=== PATIENT | female | born 1940 | race Caucasian/White ===

== ENCOUNTER 2016-10-12 13:00 | Outpatient (CLI) | payer OTHER ==
--- NOTE | 2016-10-12 14:40 | DIAGNOSTIC IMAGING REPORT ---
PROCEDURE: DEXA BONE DENSITY STUDY CLINICAL INDICATION: SCREENING FOR OSTEOPOROSIS COMPARISON: None. FINDINGS: LUMBAR SPINE: Bone mineral density 1.179 g/cm2, T score 1.2 normal LEFT HIP: Bone mineral density 0.962 g/cm2, T score 0.2 normal LEFT FEMORAL NECK: Bone mineral density 0.608 g/cm2, T score -2.2 osteopenia FRACTURE RISK CALCULATION ( when applicable): 10-year fracture risk of a major osteoporotic fracture 48% and of a hip fracture 32% (T score greater or equal to -1.0 to: NORMAL) (T score from -1.1 to -2.4: OSTEOPENIA) (T score ess than or equal to -2.5: OSTEOPOROSIS) IMPRESSION: 1. Osteopenia femoral neck with a 10-year fracture risk of 48% and a hip fracture risk of 32%
--- NOTE | 2016-10-12 15:43 | DIAGNOSTIC IMAGING REPORT ---
PROCEDURE: MG BILATERAL DIAGNOSTIC W/CAD INDICATION: Palpable area and pain and lateral right breast. New baseline. Family history breast carcinoma (maternal aunts). TECHNIQUE: CC and MLO digital views of each breast with true-lateral digital view of the right breast. In addition, reverse MLO and exaggerated CC views were obtained of the lateral right breast (region of clinical concern). Finally, high-resolution right breast ultrasound was performed (18 mHz). COMPARISON: FINDINGS: MAMMOGRAM: Computer-aided detection applied. Mildly dense parenchymal pattern. There is a 6 mm benign intramammary lymph node in the upper outer left breast. There is no evidence of abnormality in the upper outer right breast. BREAST ULTRASOUND: Normal parenchyma. No evidence of mass or cyst. IMPRESSION: 1. Negative mammogram and negative right breast ultrasound. 2. Resume routine screening schedule (September 2017). 3. Findings discussed with the patient. RESULT CODE: 1- Negative. A. A negative report should not delay biopsy if a dominant or clinically suspicious mass is present. 10-15% of cancers are not identified by x-ray. B. A negative report may reinforce clinical impression. C. Adenosis and dense breasts may obscure an underlying neoplasm. D. False positive reports average 6-10%. E.. A yearly screening mammogram is recommended. A reminder letter will be scheduled.
== END 2016-10-12 23:00 ==
LOC: MAM SRH 13:00
DX: N64.4 Mastodynia (principal); Z80.3 Family history of malignant neoplasm of breast; M85.88 Other specified disorders of bone density and structure, other site